=== PATIENT | male | born 1980 | race Caucasian/White ===

== ENCOUNTER 2020-10-24 12:17 | Day surgery (SDC) | payer OTHER ==
[~2020-10-24] VITALS: Ht 190.5 cm; Wt 116.0 kg
[~2020-10-24 12:17] MED LIST: BUPIVACAINE/PF 0.5% ONE; EPINEPHRINE 1 MG/ML, 1ML ONE
[2020-10-24 12:36] VITALS: BP 123/86
[2020-10-24] MEDS ORDERED: MIDAZOLAM 1 MG/ML, 2ML ONE (12:37)
[2020-10-24] MEDS ORDERED: FENTANYL PF 100 MCG/2ML ONE ×2 (12:38→14:43)
[2020-10-24] MEDS ORDERED: OXYcodone 5 MG/5 ML ORAL.SOL UDC PO PRN (13:00)
[2020-10-24] MEDS ORDERED: FENTANYL PF 100 MCG/2ML IV PRN (13:00)
[2020-10-24] MEDS ORDERED: HYDROcodone/APAP 7.5-325MG/15ML UDC PO PRN (13:00)
[2020-10-24] MEDS ORDERED: PROMETHAZINE 25 MG/ML, 1ML IVPush PRN (13:00)
[2020-10-24] MEDS ORDERED: KETOROLAC 30 MG/1 ML IVPush PRN (13:00)
[2020-10-24] MEDS ORDERED: HYDROmorphone 1 MG/ML, 1ML INJ IVPush PRN (13:00)
[2020-10-24] MEDS ORDERED: CHLORHEXIDINE 15 ML UDC MM ONE (13:00)
[2020-10-24] MEDS ORDERED: LACTATED RINGERS 1,000 ML IV SCH (13:00)
[2020-10-24] MEDS ORDERED: PROPOFOL 10 MG/ML, 20ML ONE (13:04)
[2020-10-24] MEDS ORDERED: DEXAMETHASONE 4 MG/ML, 1ML ONE (13:04)
[2020-10-24] MEDS ORDERED: SUCCINYLCHOLINE 20 MG/ML, 10ML ONE (13:04)
[2020-10-24] MEDS ORDERED: EPHEDRINE 50 MG/ML, 1ML ONE (13:04)
[2020-10-24] MEDS ORDERED: CEFAZOLIN 1,000 MG ONE (13:04)
[2020-10-24] MEDS ORDERED: ONDANSETRON 2MG/ML, 2ML ONE (13:04)
[2020-10-24] MEDS ORDERED: ROCURONIUM 10 MG/ML,10ML ONE (13:04)
[2020-10-24] MEDS ORDERED: OXYcodone 5 MG/5 ML ORAL.SOL UDC ONE (14:43)
== END 2020-10-24 17:00 | disposition home or self-care (01) ==
LOC: OUT 12:17
PROVIDERS: ATTEND Colon & Rectal Surgery
DX: K42.9 Umbilical hernia without obstruction or gangrene (principal); K21.9 Gastro-esophageal reflux disease without esophagitis; I10 Essential (primary) hypertension; G47.33 Obstructive sleep apnea (adult) (pediatric); E66.01 Morbid (severe) obesity due to excess calories; Z88.8 Allergy status to other drugs, medicaments and biological substances; Z20.828 Contact with and (suspected) exposure to other viral communicable diseases; Z90.49 Acquired absence of other specified parts of digestive tract; Z87.891 Personal history of nicotine dependence; Z98.890 Other specified postprocedural states; Z79.899 Other long term (current) drug therapy; Z83.3 Family history of diabetes mellitus; Z82.49 Family history of ischemic heart disease and other diseases of the circulatory system; Z68.32 Body mass index [BMI] 32.0-32.9, adult
CPT/HCPCS: 49652; C1781; J0171; J0330; J0690; J1100; J2250; J2405; J2704; J3010; J7120; S2900; U0003